=== PATIENT | female | born 1950 | race Caucasian/White ===

== ENCOUNTER 2017-08-04 09:12 | Inpatient (IN) | payer MEDICARE ==
[2017-08-04] MEDS ORDERED: Acetaminophen TAB* 325 MG PO PRN (12:09)
[2017-08-04] MEDS ORDERED: Senna TAB PO PRN (12:09)
[2017-08-04] MEDS ORDERED: Bisacodyl SUPP* 10 MG SUPP PR PRN (12:09)
[2017-08-04] MEDS ORDERED: Magnesium Hydroxide LIQ* 30 ML UDC PO PRN (12:13)
[2017-08-04] MEDS: oxyCODONE/Acetamin 5/325 MG* TAB PO PRN ×2 (12:25→20:07)
[2017-08-04] MEDS: traMADol TAB* 50 MG PO PRN (15:51)
--- NOTE | 2017-08-04 20:12 | HP ---
HISTORY AND PHYSICAL: DATE OF ADMISSION: 08/04/17 REASON FOR ADMISSION: Right distal femur fracture. HISTORY OF PRESENT ILLNESS: Savanah Ibrahim is a 67-year-old female. She was riding on her card reader. She had dumped some of the lawn clippings. When she got back on the card reader, it would not start. She put the mower into neutral and tried to push the card reader. Unfortunately, her leg got stuck in a rut in the ground and she fell. She had severe pain in her right knee area. Luckily, she had her cell phone with her. She tried calling her son-in-law and then her daughter, but was unable to reach them. Finally she called 911. She was brought to [facility]. X-ray of the right knee demonstrated a displaced fracture involving the right femoral condyle. The patient was evaluated. She was taken to the operating room on 08/01/17. She underwent an open reduction internal fixation of the right distal femur. Dr. Fulton did the surgery. She was put in a straight leg immobilizer after the surgery. She is nonweightbearing on the right leg. She was put on Lovenox for DVT prophylaxis. She was otherwise medically stable. She failed to have both physical therapy and occupational therapy needs. She is now being admitted for inpatient rehab so that she might return to independent living. PAST MEDICAL HISTORY: Significant for hypertension. CURRENT MEDICATIONS: Include; 1. Lovenox. 2. Percocet. 3. Ultram. 4. Diovan. 5. Norvasc. 6. Bowel medications. ALLERGIES: She has no known drug allergies. SOCIAL HISTORY: She is a nonsmoker, nondrinker, lives by herself in a 2-story house, but can stay on 1 level. She has 2 daughters in the area who are able to get her groceries. REVIEW OF SYSTEMS: No current shortness of breath or chest pain. Does have mild difficulty with constipation. PHYSICAL EXAMINATION VITAL SIGNS: The patient's temperature is 98.8, blood pressure is 126/45, pulse is 66, respirations 16. HEENT: Her extraocular movements are intact. Tongue is midline. NECK: Supple. LUNGS: Sound clear to auscultation bilaterally. HEART: Sounds are regular. S1 and S2 are audible. ABDOMEN: Soft and nontender. Bowel sounds are audible. EXTREMITIES: Her right knee has an immobilizer on. It has a dressing which is clean. NEUROLOGIC: She is awake, alert, and oriented. Muscle strength 5/5 except the right lower extremity which is 3/5 secondary to pain. The patient's functional exam, she transfers with min assist. ASSESSMENT: Right distal femur fracture. She is now status post ORIF of the same. She is nonweightbearing on the right leg. PLAN: Integrate her into a comprehensive and therapeutic rehab program. We will have the following goals: 1. Physical Therapy will see the patient. They are going to work on functional transfer training, ambulation training with a walker. 2. Occupational Therapy will see the patient, work on her activities of daily living including toileting and toilet transfers. 3. Lovenox for DVT prophylaxis. 4. Adequate analgesia. 5. Her bowels will be regulated. 6. environmental services assistant will be closely involved to make sure that any services and equipment the patient requires are in place prior to the discharge. 7. For her hypertension, we will resume her Norvasc and her Diovan. 8. Family training as appropriate. 9. Home with appropriate services. ESTIMATED LENGTH OF STAY: 10 days. [id number]/[facility] #: [id number] ELOY
[2017-08-04] MEDS: Enoxaparin(*) 30 MG/0.3 ML SYR SUBCUT SCH (22:15)
[2017-08-04] MEDS: Senna TAB PO SCH (22:15)
[2017-08-04] MEDS: Docusate CAP* 100 MG PO SCH (22:15)
[2017-08-05] MEDS: oxyCODONE/Acetamin 5/325 MG* TAB PO PRN ×4 (00:45→21:02)
[2017-08-05 06:08] LABS: ABS Basophils 0 10^3/ul (0-0.2); ABS Eosinophils 0.1 10^3/ul (0-0.6); ABS Lymphocytes 1.6 10^3/ul (1.0-4.8); ABS Monocytes 0.5 10^3/ul (0-0.8); ABS Neutrophils 3.5 10^3/ul (1.5-7.7); ABS Nucleated RBC 0 10^3/ul; Eosinophil % 1.3 % (0-6); Hematocrit 28 % (35-47); Hemoglobin 9.7 g/dl (12.0-16.0); Lymphocyte % 28.4 % (25-47); Mean Corpuscular HGB Conc 35 g/dl (31-36); Mean Corpuscular Hemoglobin 29 pg (27-31); Mean Corpuscular Volume 85 fL (80-97); Nucleated Red Blood Cells % 0; Platelet Count 153 10^3/ul (150-450); Red Cell Distribution Width 15 % (10.5-15); White Blood Count 5.7 10^3/ul (3.5-10.8)
[2017-08-05 06:22] LABS: EGFR Non-African American 138.1 (>60)
[2017-08-05] MEDS: amLODIPine TAB* 5 MG PO SCH (08:02)
[2017-08-05] MEDS: traMADol TAB* 50 MG PO PRN ×3 (08:02→20:11)
[2017-08-05] MEDS: Docusate CAP* 100 MG PO SCH ×2 (08:04→20:07)
[2017-08-05] MEDS: Enoxaparin(*) 30 MG/0.3 ML SYR SUBCUT SCH ×2 (08:44→21:25)
[2017-08-05] MEDS ORDERED: Valsartan TAB* 80 MG PO SCH (09:00)
--- NOTE | 2017-08-05 10:44 | PN ---
Progress Note Date of Service: 08/05/17 Note: MONA LIRIANO was visited. Nursing and therapy notes read and reviewed. Evaluations not completed. No chest pain, shortness of breath or abdominal pain. She is unhappy and frustrated with her situation and angry with herself. At home she did not use diovan, only norvasc. Diovan was too expensive. Also, took potassium and magnesium. When she is up moving she feels nauseated and light-headed. Current Medications: Active Medications Generic Name Dose Route Start Last Admin Trade Name Freq PRN Reason Stop Dose Admin Acetaminophen 650 mg 08/04/17 12:09 Tylenol Tab* PO Q6H PRN FEVER/PAIN Amlodipine Besylate 5 mg 08/05/17 09:00 08/05/17 08:02 Norvasc Tab* PO 5 mg DAILY DWIGHT Administration Bisacodyl 10 mg 08/04/17 12:09 Dulcolax Supp* CO DAILY PRN CONSTIPATION Docusate Sodium 100 mg 08/04/17 21:00 08/05/17 08:04 Colace Cap* PO 100 mg BID DWIGHT Administration Enoxaparin Sodium 30 mg 08/04/17 21:00 08/05/17 08:44 Lovenox(*) SUBCUT 30 mg Q12H DWIGHT Administration Magnesium Hydroxide 30 ml 08/04/17 12:13 Milk Of Magnesia Liq* PO Q6H PRN CONSTIPATION Oxycodone/Acetaminophen 1 tab 08/04/17 12:14 Percocet 5/325 Tab* PO Q4H PRN PAIN - MODERATE TO SEVERE Oxycodone/Acetaminophen 2 tab 08/04/17 12:15 08/05/17 05:59 Percocet 5/325 Tab* PO 2 tab Q4H PRN Administration PAIN - SEVERE Senna 2 tab 08/04/17 21:00 08/04/17 22:15 Senokot Tab* PO 2 tab BEDTIME DWIGHT Administration Tramadol HCl 50 mg 08/04/17 12:18 08/05/17 08:02 Ultram* PO 50 mg Q6H PRN Administration PAIN - MODERATE Valsartan 80 mg 08/05/17 09:00 08/05/17 08:02 Diovan Tab* PO 80 mg DAILY DWIGHT Administration Vital Signs: Vital Signs (72 hours) 08/04/17 08/04/17 08/04/17 11:37 12:25 12:26 Temperature 98.8 F Pulse Rate 66 Respiratory 16 16 16 Rate Blood Pressure 126/45 (mmHg) O2 Sat by Pulse 97 Oximetry 08/04/17 08/04/17 08/04/17 12:46 14:14 15:51 Temperature Pulse Rate Respiratory 16 20 16 Rate Blood Pressure (mmHg) O2 Sat by Pulse Oximetry 08/04/17 08/04/17 08/04/17 16:00 20:00 20:06 Temperature 98.2 F Pulse Rate 65 Respiratory 16 18 18 Rate Blood Pressure 101/39 (mmHg) O2 Sat by Pulse 95 95 Oximetry 08/04/17 08/04/17 08/05/17 20:07 23:30 00:34 Temperature 98.3 F Pulse Rate 71 Respiratory 18 18 16 Rate Blood Pressure 111/45 (mmHg) O2 Sat by Pulse 97 Oximetry 08/05/17 08/05/17 08/05/17 00:40 00:45 02:45 Temperature Pulse Rate Respiratory 18 16 Rate Blood Pressure (mmHg) O2 Sat by Pulse 97 Oximetry 08/05/17 08/05/17 08/05/17 05:59 06:01 08:00 Temperature 99.1 F Pulse Rate 61 Respiratory 20 16 Rate Blood Pressure 126/52 (mmHg) O2 Sat by Pulse 98 98 Oximetry 08/05/17 08/05/17 08:02 10:36 Temperature Pulse Rate Respiratory 18 18 Rate Blood Pressure (mmHg) O2 Sat by Pulse Oximetry Lab Results: Laboratory Results - last 24 hr 08/05/17 08/05/17 05:52 05:52 WBC 5.7 RBC 3.30 L Hgb 9.7 L Hct 28 L MCV 85 MCH 29 MCHC 35 RDW 15 Plt Count 153 MPV 8.0 Neut % (Auto) 61.0 Lymph % (Auto) 28.4 [place] % (Auto) 8.5 H Eos % (Auto) 1.3 Baso % (Auto) 0.8 Absolute Neuts (auto) 3.5 Absolute Lymphs (auto) 1.6 Absolute Monos (auto) 0.5 Absolute Eos (auto) 0.1 Absolute Basos (auto) 0 Absolute Nucleated RBC 0 Nucleated RBC % 0 Sodium 138 L Potassium 3.4 L Chloride 104 Carbon Dioxide 28 Anion Gap 6 BUN 15 Creatinine 0.45 L Est GFR ( Amer) 177.7 Est GFR (Non-Af Amer) 138.1 BUN/Creatinine Ratio 33.3 H Glucose 91 Calcium 8.5 L Exam: GEN: no acute distress. alert and appropriate. LUNGS: clear to auscultation bilaterally CV: regular rate and rhythm ABD: + bowel sounds, soft, non-tender and non-distended. EXT: No edema. Right knee immobilizer on. Dressing is c/d/i. NEURO: LE motor 5/5 bilaterally at ankles and toes with normal sensation. Assessment/Plan: 67yo with right distal femur fracture s/p ORIF #Right distal femur fracture: f/u with Dr. Fulton. NWB RLE and knee immobilizer on AAT. #DVT ppx - On lovenox for total of 11 days. She will no inject herself, but her daughters will work it out. Training of family members closer to d/c. #Hypertension: She was no taking valsartan at [facility] and BP looked ok. D/c valsartan and monitor. Continue norvasc. If hypertensive consider increase norvasc. #Nausea and light headed when up: Check orthostatic vital signs. Zofran prn. D/ c valsartan. #Hypokalemia: Give KCl and MgOx today and check Mg. Recheck K and Mg on Monday. Takes some potassium and Mg at home normally. #Acute post-op anemia: Last H/H before today was 10.9/30.9 at [facility]. Was taking ferrous sulfate at [facility]. Restart iron. Recheck cbc Monday. She says she has some chronic anemia as well. #continue PT/OT evaluations #Advanced directives: full code #Estimated LOS: IPOC on Monday. 08/05/17 10:46
[2017-08-05] MEDS ORDERED: Ondansetron ODT TAB* 4 MG SL PRN (10:53)
[2017-08-05] MEDS: Ferrous Sulfate TAB* 325 MG PO SCH ×2 (12:26→20:07)
[2017-08-05] MEDS: Magnesium Oxide TAB* 400 MG PO SCH (12:26)
[2017-08-05] MEDS: Potassium Chlor TAB* 20 MEQ TAB.ER PO SCH ×2 (12:26→21:25)
[2017-08-05] MEDS: Senna TAB PO SCH (20:07)
[2017-08-06] MEDS: traMADol TAB* 50 MG PO PRN ×3 (02:08→16:12)
[2017-08-06] MEDS: oxyCODONE/Acetamin 5/325 MG* TAB PO PRN (05:02)
[2017-08-06 06:22] LABS: ABS Basophils 0.1 10^3/ul (0-0.2); ABS Eosinophils 0.1 10^3/ul (0-0.6); ABS Lymphocytes 1.3 10^3/ul (1.0-4.8); ABS Monocytes 0.5 10^3/ul (0-0.8); ABS Neutrophils 4.3 10^3/ul (1.5-7.7); ABS Nucleated RBC 0 10^3/ul; Hematocrit 32 % (35-47); Hemoglobin 10.9 g/dl (12.0-16.0); Lymphocyte % 20.5 % (25-47); Mean Corpuscular HGB Conc 35 g/dl (31-36); Mean Corpuscular Hemoglobin 29 pg (27-31); Mean Corpuscular Volume 85 fL (80-97); Mean Platelet Volume 7.9 um3 (7.4-10.4); Nucleated Red Blood Cells % 0.1; Platelet Count 220 10^3/ul (150-450); Red Blood Count 3.73 10^6/ul (4.0-5.4); Red Cell Distribution Width 15 % (10.5-15); White Blood Count 6.1 10^3/ul (3.5-10.8)
[2017-08-06 06:37] LABS: EGFR Non-African American 149.6 (>60)
[2017-08-06] MEDS ORDERED: Docusate CAP* 100 MG PO PRN (07:42)
[2017-08-06] MEDS ORDERED: Senna TAB PO PRN (07:42)
[2017-08-06] MEDS: Potassium Chlor TAB* 20 MEQ TAB.ER PO SCH ×2 (08:17→21:04)
[2017-08-06] MEDS: Magnesium Oxide TAB* 400 MG PO SCH (08:17)
[2017-08-06] MEDS: amLODIPine TAB* 5 MG PO SCH (08:17)
--- NOTE | 2017-08-06 08:21 | PN ---
Progress Note Date of Service: 08/06/17 Note: MONA LIRIANO was visited. Nursing and therapy notes read and reviewed. She did not get in her full 3h of therapy yesterday and refused afternoon PT. She says percocet not working as well as tramadol had in past, but she took percocet in the morning and tramadol in the afternoon, which contradicts her function, which was pointed out to her. She does not want to be on iron. Had 3 bowel movements yesterday and wants bowel meds to change to prn. No chest pain, shortness of breath or abdominal pain. Current Medications: Active Medications Generic Name Dose Route Start Last Admin Trade Name Freq PRN Reason Stop Dose Admin Acetaminophen 650 mg 08/04/17 12:09 Tylenol Tab* PO Q6H PRN FEVER/PAIN Hydrocodone Bitart/Acetaminophen 1 tab 08/06/17 07:40 [place] 5-325 Tab* PO Q4H PRN PAIN Hydrocodone Bitart/Acetaminophen 2 tab 08/06/17 07:41 [place] 5-325 Tab* PO Q4H PRN PAIN Amlodipine Besylate 5 mg 08/05/17 09:00 08/05/17 08:02 Norvasc Tab* PO 5 mg DAILY DWIGHT Administration Bisacodyl 10 mg 08/04/17 12:09 Dulcolax Supp* [place] DAILY PRN CONSTIPATION Docusate Sodium 100 mg 08/06/17 07:42 Colace Cap* PO BID PRN CONSTIPATION Enoxaparin Sodium 30 mg 08/04/17 21:00 08/05/17 21:25 Lovenox(*) SUBCUT 30 mg Q12H DWIGHT Administration Magnesium Hydroxide 30 ml 08/04/17 12:13 Milk Of Magnesia Liq* PO Q6H PRN CONSTIPATION Magnesium Oxide 400 mg 08/05/17 11:00 08/05/17 12:26 Magox 400 Tab* PO 400 mg DAILY DWIGTH Administration Ondansetron HCl 4 mg 08/05/17 10:53 Zofran Odt Tab* SL Q6H PRN NAUSEA/VOMITING Potassium Chloride 20 meq 08/05/17 11:00 08/05/17 21:25 Klor Con Er Tab* PO 20 meq BID DWIGHT Administration Senna 2 tab 08/06/17 07:42 Senokot Tab* PO BEDTIME PRN CONSTIPATION Tramadol HCl 50 mg 08/04/17 12:18 08/06/17 02:08 Ultram* PO 50 mg Q6H PRN Administration PAIN - MODERATE Vital Signs: Vital Signs Temp Pulse Resp BP Pulse Ox 98.3 F 69 18 140/58 98 08/06/17 07:46 08/06/17 04:51 08/06/17 06:45 08/06/17 04:51 08/06/17 04:51 Lab Results: Laboratory Results - last 24 hr 08/05/17 08/06/17 08/06/17 05:52 05:37 05:37 WBC 6.1 RBC 3.73 L Hgb 10.9 L Hct 32 L MCV 85 MCH 29 MCHC 35 RDW 15 Plt Count 220 MPV 7.9 Neut % (Auto) 69.7 Lymph % (Auto) 20.5 L [place] % (Auto) 7.9 H Eos % (Auto) 1.0 Baso % (Auto) 0.9 Absolute Neuts (auto) 4.3 Absolute Lymphs (auto) 1.3 Absolute Monos (auto) 0.5 Absolute Eos (auto) 0.1 Absolute Basos (auto) 0.1 Absolute Nucleated RBC 0 Nucleated RBC % 0.1 Sodium 138 L 139 Potassium 3.4 L 3.5 Chloride 104 104 Carbon Dioxide 28 27 Anion Gap 6 8 BUN 15 13 Creatinine 0.45 L 0.42 L Est GFR ( Amer) 177.7 192.4 Est GFR (Non-Af Amer) 138.1 149.6 BUN/Creatinine Ratio 33.3 H 31.0 H Glucose 91 104 H Calcium 8.5 L 8.8 Magnesium 2.0 1.9 Exam: GEN: no acute distress. alert and appropriate. LUNGS: clear to auscultation bilaterally CV: regular rate and rhythm ABD: + bowel sounds, soft, non-tender and non-distended. EXT: No edema. Right knee immobilizer on. Dressing is c/d/i. NEURO: LE motor 5/5 bilaterally at ankles and toes with normal sensation. Assessment/Plan: 67yo with right distal femur fracture s/p ORIF #Right distal femur fracture: f/u with Dr. Fulton. NWB RLE and knee immobilizer on AAT. She says Dr. Fulton wants her to do some knee flexion and at [facility] she had the brace off for showers. Will have to f/u with his office on Monday. #DVT ppx - On lovenox for total of 11 days. She will not inject herself, but her daughters will work it out. Training of family members closer to d/c. #Hypertension: She was not taking valsartan at [facility] and BP looked ok. D/c'd valsartan and monitor VS. Continue norvasc. If hypertensive consider increase norvasc. #Nausea and light headed when up: Orthostatic vital signs were good yesterday. Zofran prn. Off valsartan. #Hypokalemia: On KCl and MgOx. She takes some of both normally at home but does not known doses. Both K and Mg ok today. f/u K on routine labs. #Acute post-op anemia: Better today. D/c FeSO4 as patient does not like it. #Pain: Changed from percocet to [place]. Continue tramadol prn. #continue PT/OT: I d/w need for 3hrs of therapy and she is not ready to go home. 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 Per d/c orders for 1st week she is just to ambulate bathroom distances. She will be at end of first week on Monday. #Advanced directives: full code #Estimated LOS: IPOC on Monday. 08/06/17 08:15
[2017-08-06] MEDS: Enoxaparin(*) 30 MG/0.3 ML SYR SUBCUT SCH ×2 (08:29→21:02)
[2017-08-06] MEDS: HYDROcodone/ACETAMIN 5-325 MG* 1 TAB PO PRN ×4 (09:45→22:00)
[2017-08-07] MEDS: traMADol TAB* 50 MG PO PRN ×3 (00:41→15:02)
[2017-08-07] MEDS: HYDROcodone/ACETAMIN 5-325 MG* 1 TAB PO PRN ×5 (02:08→21:59)
[2017-08-07 06:50] LABS: ABS Basophils 0 10^3/ul (0-0.2); ABS Eosinophils 0.1 10^3/ul (0-0.6); ABS Lymphocytes 1.3 10^3/ul (1.0-4.8); ABS Monocytes 0.5 10^3/ul (0-0.8); ABS Nucleated RBC 0 10^3/ul; Eosinophil % 1.4 % (0-6); Hematocrit 29 % (35-47); Hemoglobin 10.1 g/dl (12.0-16.0); Lymphocyte % 25.8 % (25-47); Mean Corpuscular HGB Conc 35 g/dl (31-36); Mean Corpuscular Hemoglobin 30 pg (27-31); Mean Corpuscular Volume 85 fL (80-97); Mean Platelet Volume 7.5 um3 (7.4-10.4); Nucleated Red Blood Cells % 0.3; Platelet Count 201 10^3/ul (150-450); Red Blood Count 3.41 10^6/ul (4.0-5.4); Red Cell Distribution Width 15 % (10.5-15); White Blood Count 4.9 10^3/ul (3.5-10.8)
[2017-08-07 07:05] LABS: EGFR Non-African American 149.6 (>60)
[2017-08-07] MEDS: Enoxaparin(*) 30 MG/0.3 ML SYR SUBCUT SCH ×2 (09:01→21:26)
[2017-08-07] MEDS: Magnesium Oxide TAB* 400 MG PO SCH (09:02)
[2017-08-07] MEDS: amLODIPine TAB* 5 MG PO SCH (09:02)
[2017-08-07] MEDS: Potassium Chlor TAB* 20 MEQ TAB.ER PO SCH (09:02)
--- NOTE | 2017-08-07 13:00 | PMRUTEAM ---
PMRU: Team Meeting Current Status: Nursing: Current Status Skin Deviations [Right Leg] Incision Skin Deviation Description [ brace in place Right Leg] Physical Therapy: Current Status Bed Mobility Assistance Supervision Transfer Moblility Assistance Supervision Transfer/Bed Mobility Rolling Walker Recommended Devices Ambulation Assistance Contact guard Ambulation Assistive Devices Rolling Walker Wheelchair Distance (ft) 150 Occupational Therapy: Current Status Upper Body Dressing Supervision Lower Body Dressing Supervision Bathing Supervision Toileting Supervision Toilet Transfer Supervision Shower Transfer Supervision Eating Independent Rec Therapy: Current Status Summary of Assessment and Pt. was open to conversation. Pt. expressed Clinical Impression frustration about her current physical health and pain. Pt. states she is a very active person and that she's upset she won't be able to engage in the things she wants to do for some time now. Pt. was open to continued leisure visits. Treatment Goals Pt. will engage in leisure activities while on the unit. Treatment Plan Provide RT services and encourage involvement. Social Work: Current Status Discharge Plan return home with home care svs and family support Potential for Family Training pt's daughters are involved and supportive Anticipated Discharge Home Destination Discharge With home care svs and family support Goals: Physical Therapy: Initial Goals Bed Mobility Assistance Independent Transfer Mobility Assistance Independent Transfer/Bed Mobility Rolling Walker Recommended Devices Ambulation Independent Ambulation Recommended Devices Rolling Walker Ambulation Distance 150 Wheelchair Propulsion Ability Independent Wheelchair Distance (ft) 150 Stairs Assistance Independent Stair Recommended Devices Two Rails Number of Stairs 2 Physical Therapy: Updated Goals Transfer/Bed Mobility Rolling Walker Recommended Devices Occupational Therapy: Initial Goals Goals to be Completed in (Days 5 days ) Upper Body Bathing Routine Modified Independent with Lower Body Bathing Routine Modified Independent with Upper Body Dressing Routine Independent Lower Body Dressing Routine Modified Independent with Toilet Hygeine and Clothing Modified Independent with Management Routine Toilet Transfer Routine Modified Independent with Tub Transfer Routine Modified Independent with Functional Transfers for ADL Modified Independent with Grooming Routine Independent Feeding Routine Independent Social Work: Goals Discharge Plan return home with home care svs and family support Potential for Family Training pt's daughters are involved and supportive Anticipated Discharge Home Destination Discharge With home care svs and family support Care Plan: Care Plan ADL's - Improve/Maintain Start: 08/04/17 15:04 Freq: DAILY Status: Active Target: Protocol: Activity Type Activity Date Activity User E-Sign Co-Sign Detail Recorded Client Recorded Date Recorded By Document 08/04/17 15:04 [id number] [id number] 08/04/17 15:04 [id number] 08/04/17 15:04 PMRU Outcome: ADL's/ADL Transfers Orders/Interventions Occupational Therapy Evaluation & Treatment Device Yes Patient to receive OT 5x/wk for 60-120 Therex min/day Self Care Management Group Therapy Neuromuscular ReEducation UE/LE ADL's with Assist Yes ADL Transfers with Assist Yes Toileting: Transfers,Clothing Management Yes ,Hygeine w/Assist Light Kitchen/Laundry w/Assist Yes Coping/Psych-Improve/Maintain Start: 08/05/17 11:39 Freq: DAILY Status: Active Target: Protocol: Activity Type Activity Date Activity User E-Sign Co-Sign Detail Recorded Client Recorded Date Recorded By Document 08/07/17 04:24 [id number] 08/07/17 04:25 [id number] 08/07/17 04:24 PMRU Outcome: Coping/Psychosocial Coping Outcome/Goals Verbalization of Acceptance of Rehab Admit Utilization of Appropriate Problem Solving Techniques Willingness to Participate in Treatment Plan and Basic Needs Psychosocial Outcome/Goals Maintain/ Improve Emotional Health Cooperate/ Participate in Plan Progression Toward Outcome/Goals - Progressing Coping Progression Toward Outcome/Goals - Progressing Psychosocial Discharge Planning - Improve/Maintain Start: 08/05/17 11:39 Freq: DAILY Status: Active Target: Protocol: Activity Type Activity Date Activity User E-Sign Co-Sign Detail Recorded Client Recorded Date Recorded By Document 08/07/17 04:24 [id number] 08/07/17 04:25 [id number] 08/07/17 04:24 PMRU Outcome: Discharge Planning Update Patient Family Yes Outcome/Goals Demonstrates Understanding of Discharge Plan Homecare Referral - See Comment Progression Toward Outcome/Goals Progressing Education-Improve/Maintain Start: 08/05/17 11:39 Freq: DAILY Status: Active Target: Protocol: Activity Type Activity Date Activity User E-Sign Co-Sign Detail Recorded Client Recorded Date Recorded By Document 08/07/17 04:24 [id number] [id number] 08/07/17 04:25 [id number] 08/07/17 04:24 PMRU Outcome: Education Outcome/Goals Demonstrate/ Verbalize Understanding of Written Discharge Instructions Demonstrates Skills Encourage Questions Progression Toward Outcome/Goals Progressing Outcome/Goals Met Comment continuous pain medication and pain education Gastrointestinal-Improve/Maintain Start: 08/05/17 01:20 Freq: DAILY Status: Active Target: Protocol: Activity Type Activity Date Activity User E-Sign Co-Sign Detail Recorded Client Recorded Date Recorded By Document 08/05/17 23:01 [id number] 08/05/17 23:04 [id number] 08/05/17 23:01 Outcome: Gastrointestinal Outcome/Goals Maintain/ Achieve Bowel Regularity in Accordance with Pt's Baseline Remain Free of Emesis Infection-Improve/Maintain Start: 08/05/17 01:20 Freq: DAILY Status: Active Target: Protocol: Activity Type Activity Date Activity User E-Sign Co-Sign Detail Recorded Client Recorded Date Recorded By Document 08/05/17 23:01 [id number] 08/05/17 23:04 [id number] 08/05/17 23:01 Outcome: Infection Outcome/Goals Remain Free of Infection Achieve Optimal Health Status Related to Diagnosis Pain/Comfort- Improve/Maintain Start: 08/05/17 11:39 Freq: DAILY Status: Active Target: Protocol: Activity Type Activity Date Activity User E-Sign Co-Sign Detail Recorded Client Recorded Date Recorded By Document 08/07/17 04:24 [id number] 08/07/17 04:25 [id number] 08/07/17 04:24 PMRU Outcome: Pain/Comfort Outcome/Goals Demonstrates Knowledge and Use of Available Comfort Measures Achieves Acceptable Comfort/Pain Level as Determined by Patient/Condit Maintain Comfort Level Allowing Patient to Fully Participate in Rehab Progression Toward Outcome/Goals Progressing Outcome/Goals Met Comment pain medication given Safety- Improve/Maintain Start: 08/05/17 11:39 Freq: DAILY Status: Active Target: Protocol: Activity Type Activity Date Activity User E-Sign Co-Sign Detail Recorded Client Recorded Date Recorded By Document 08/07/17 04:24 [id number] 08/07/17 04:25 [id number] 08/07/17 04:24 PMRU Outcome: Safety Outcome/Goals Remain Free of Injury or Harm Cooperates with Safety Measures for Least Restrictive Environment Prevent Falls/ Injury Progression Toward Outcome/Goals Progressing Skin- Improve/Maintain Start: 08/05/17 11:39 Freq: DAILY Status: Active Target: Protocol: Activity Type Activity Date Activity User E-Sign Co-Sign Detail Recorded Client Recorded Date Recorded By Document 08/07/17 04:24 [id number] 08/07/17 04:25 [id number] 08/07/17 04:24 PMRU Outcome: Skin Skin Risk Level Medium Skin Orders Dressing Change Outcome/Goals Maintain/ Improve Skin Intergrity Surgical Incisions Healing Progression Toward Outcome/Goals Progressing Medicine Note: Length of Stay: 4 days Anticipated Discharge Destination: Home Tentative Discharge Date: 08/10/17 Discharged to: Home
--- NOTE | 2017-08-07 17:21 | PN ---
Progress Note Date of Service: 08/07/17 Note: MONA LIRIANO was visited. Therapy notes read and reviewed. Tiffanie was discussed in interdisciplinary plan of care rounds. She has done fairly well. Current Medications: Active Medications Generic Name Dose Route Start Last Admin Trade Name Freq PRN Reason Stop Dose Admin Acetaminophen 650 mg 08/04/17 12:09 Tylenol Tab* PO Q6H PRN FEVER/PAIN Hydrocodone Bitart/Acetaminophen 1 tab 08/06/17 07:40 08/06/17 18:02 [place] 5-325 Tab* PO 1 tab Q4H PRN Administration PAIN Hydrocodone Bitart/Acetaminophen 2 tab 08/06/17 07:41 08/07/17 11:03 [place] 5-325 Tab* PO 2 tab Q4H PRN Administration PAIN Amlodipine Besylate 5 mg 08/05/17 09:00 08/07/17 09:02 Norvasc Tab* PO 5 mg DAILY DWIGHT Administration Bisacodyl 10 mg 08/04/17 12:09 Dulcolax Supp* AR DAILY PRN CONSTIPATION Docusate Sodium 100 mg 08/06/17 07:42 Colace Cap* PO BID PRN CONSTIPATION Enoxaparin Sodium 30 mg 08/04/17 21:00 08/07/17 09:01 Lovenox(*) SUBCUT 30 mg Q12H DWIGHT Administration Magnesium Hydroxide 30 ml 08/04/17 12:13 Milk Of Magnesia Liq* PO Q6H PRN CONSTIPATION Ondansetron HCl 4 mg 08/05/17 10:53 Zofran Odt Tab* SL Q6H PRN NAUSEA/VOMITING Senna 2 tab 08/06/17 07:42 Senokot Tab* PO BEDTIME PRN CONSTIPATION Tramadol HCl 50 mg 08/04/17 12:18 08/07/17 15:02 Ultram* PO 50 mg Q6H PRN Administration PAIN - MODERATE Vital Signs: Vital Signs Temp Pulse Resp BP Pulse Ox 99.3 F 70 16 119/59 96 08/07/17 06:06 08/07/17 06:06 08/07/17 15:07 08/07/17 06:06 08/07/17 08:00 Lab Results: Laboratory Results - last 24 hr 08/07/17 08/07/17 06:41 06:41 WBC 4.9 RBC 3.41 L Hgb 10.1 L Hct 29 L MCV 85 MCH 30 MCHC 35 RDW 15 Plt Count 201 MPV 7.5 Neut % (Auto) 61.3 Lymph % (Auto) 25.8 [place] % (Auto) 10.6 H Eos % (Auto) 1.4 Baso % (Auto) 0.9 Absolute Neuts (auto) 3.0 Absolute Lymphs (auto) 1.3 Absolute Monos (auto) 0.5 Absolute Eos (auto) 0.1 Absolute Basos (auto) 0 Absolute Nucleated RBC 0 Nucleated RBC % 0.3 Sodium 140 Potassium 4.1 Chloride 108 Carbon Dioxide 28 Anion Gap 4 BUN 15 Creatinine 0.42 L Est GFR ( Amer) 192.4 Est GFR (Non-Af Amer) 149.6 BUN/Creatinine Ratio 35.7 H Glucose 103 H Calcium 8.8 Total Bilirubin 1.40 H AST 94 H ALT 104 H Alkaline Phosphatase 289 H Total Protein 5.7 L Albumin 3.2 Globulin 2.5 Albumin/Globulin Ratio 1.3 Exam: LUNGS: clear to auscultation bilaterally CV: regular rate and rhythm ABD: + bowel sounds, soft, non-tender and non-distended. EXT: No edema. Right knee immobilizer on. Dressing is c/d/i. NEURO: Alert and oriented. Sensation intact. Can dorsiflex without problems Assessment/Plan: 1. Right distal femur fracture: f/u with Dr. Fulton. NWB RLE and knee immobilizer on AAT. PT/OT. 2. DVT ppx - On lovenox for total of 14 days. Will do Lovenox teaching. 3. Hypertension: She was not taking valsartan at [facility] and did not take at home. D/c'd valsartan. Continue norvasc. 4. Orthostasis/Dizziness: Better off Valsartan. 5. Hypokalemia: On KCl and MgOx. K+=4.1 today. Will hold supplements and follow 6. Acute post-op anemia: Stable. 7. Analgesia: Changed from percocet to [place]. Continue tramadol prn. 8. Advanced directives: full code 08/07/17 17:26
[2017-08-08] MEDS: HYDROcodone/ACETAMIN 5-325 MG* 1 TAB PO PRN ×5 (02:22→20:27)
[2017-08-08] MEDS: Enoxaparin(*) 30 MG/0.3 ML SYR SUBCUT SCH ×2 (09:43→20:30)
[2017-08-08] MEDS: amLODIPine TAB* 5 MG PO SCH (09:43)
--- NOTE | 2017-08-08 12:33 | PMRUTEAM ---
PMRU: Team Meeting Current Status: Nursing: Current Status Skin Deviations [Right Leg] Incision Skin Deviation Description [ Drsg and immobilizer in place Right Leg] Physical Therapy: Current Status Bed Mobility Assistance Supervision Transfer Moblility Assistance Contact Guard Assist Transfer/Bed Mobility Rolling Walker Recommended Devices Ambulation Assistance Contact Guard Assist Ambulation Assistive Devices Rolling Walker Number of Feet Patient 75 Ambulated Manual Wheelchair Control/ Bilateral UE's Technique Wheelchair Propulsion Ability Standby Assistance Wheelchair Distance (ft) 150 Objective Comments pt observed hopping for curb negotiation to enter / exit home with RW, also observed bumping strategy posteriorly with manual w/c; Occupational Therapy: Current Status Upper Body Dressing Supervision Lower Body Dressing Supervision Bathing Supervision Toileting Supervision Toilet Transfer Supervision Shower Transfer Supervision Eating Independent Rec Therapy: Current Status Summary of Assessment and RT assessment complete and pt. is aware of RT Clinical Impression services. Pt. has been better spirits and is pleasant and cooperative during leisure visits. Pt. has leisure material in her room and visits with her daughter in the afternoons. Treatment Goals Pt. will engage in leisure activities while on the unit. Treatment Plan Provide RT services and encourage involvement. Social Work: Current Status Discharge Plan return home with home care svs and family support Potential for Family Training TBD - pt lives alone and family live over 1/2 hour away Anticipated Discharge Home Destination Discharge With home care svs and family support Nutrition: Current Status Monitoring full assessment planned on 08/11 per NDS protocol. Initial/tentative goals as outlined below. Goals: Physical Therapy: Initial Goals Bed Mobility Assistance Independent Transfer Mobility Assistance Independent Transfer/Bed Mobility Rolling Walker Recommended Devices Ambulation Independent Ambulation Recommended Devices Rolling Walker Ambulation Distance 150 Wheelchair Propulsion Ability Independent Wheelchair Distance (ft) 150 Stairs Assistance Independent Stair Recommended Devices Two Rails Number of Stairs 2 Physical Therapy: Updated Goals Transfer/Bed Mobility Rolling Walker Recommended Devices Occupational Therapy: Initial Goals Goals to be Completed in (Days 5 days ) Upper Body Bathing Routine Modified Independent with Lower Body Bathing Routine Modified Independent with Upper Body Dressing Routine Independent Lower Body Dressing Routine Modified Independent with Toilet Hygeine and Clothing Modified Independent with Management Routine Toilet Transfer Routine Modified Independent with Tub Transfer Routine Modified Independent with Functional Transfers for ADL Modified Independent with Grooming Routine Independent Feeding Routine Independent Nutrition: Goals Intervention Goals 1. adequate po intake to support lean body mass and hydration without add'l wt gain 2. maintain regular bowel pattern without constipation or diarrhea 3. skin will remain intact without s/sx breakdown Social Work: Goals Discharge Plan return home with home care svs and family support Potential for Family Training TBD - pt lives alone and family live over 1/2 hour away Anticipated Discharge Home Destination Discharge With home care svs and family support Care Plan: Care Plan ADL's - Improve/Maintain Start: 08/04/17 15:04 Freq: DAILY@1200 Status: Active Target: Protocol: Activity Type Activity Date Activity User E-Sign Co-Sign Detail Recorded Client Recorded Date Recorded By Document 08/08/17 10:13 [id number] [id number] 08/08/17 10:13 [id number] 08/08/17 10:13 PMRU Outcome: ADL's/ADL Transfers Orders/Interventions Occupational Therapy Evaluation & Treatment Device Yes Patient to receive OT 5x/wk for 60-120 Therex min/day Self Care Management Group Therapy Neuromuscular ReEducation UE/LE ADL's with Assist Yes ADL Transfers with Assist Yes Toileting: Transfers,Clothing Management Yes ,Hygeine w/Assist Light Kitchen/Laundry w/Assist Yes Progression Toward Outcome/Goals Progressing Outcome/Goals Met Pt. continues to progress towards OT goals demonstrating increased strength and overall endurance. Coping/Psych-Improve/Maintain Start: 08/05/17 11:39 Freq: DAILY@1200 Status: Active Target: Protocol: Activity Type Activity Date Activity User E-Sign Co-Sign Detail Recorded Client Recorded Date Recorded By Document 08/08/17 01:18 [id number] 08/08/17 01:19 [id number] 08/08/17 01:18 PMRU Outcome: Coping/Psychosocial Coping Outcome/Goals Verbalization of Acceptance of Rehab Admit Utilization of Appropriate Problem Solving Techniques Willingness to Participate in Treatment Plan and Basic Needs Psychosocial Outcome/Goals Maintain/ Improve Emotional Health Cooperate/ Participate in Plan Progression Toward Outcome/Goals - Progressing Coping Progression Toward Outcome/Goals - Progressing Psychosocial Discharge Planning - Improve/Maintain Start: 08/05/17 11:39 Freq: DAILY@1200 Status: Active Target: Protocol: Activity Type Activity Date Activity User E-Sign Co-Sign Detail Recorded Client Recorded Date Recorded By Document 08/07/17 04:24 [id number] [id number] 08/07/17 04:25 [id number] 08/07/17 04:24 PMRU Outcome: Discharge Planning Update Patient Family Yes Outcome/Goals Demonstrates Understanding of Discharge Plan Homecare Referral - See Comment Progression Toward Outcome/Goals Progressing Education-Improve/Maintain Start: 08/05/17 11:39 Freq: DAILY@1200 Status: Active Target: Protocol: Activity Type Activity Date Activity User E-Sign Co-Sign Detail Recorded Client Recorded Date Recorded By Document 08/08/17 01:18 [id number] 08/08/17 01:19 [id number] 08/08/17 01:18 PMRU Outcome: Education Outcome/Goals Encourage Questions Progression Toward Outcome/Goals Progressing Gastrointestinal-Improve/Maintain Start: 08/05/17 01:20 Freq: DAILY@1200 Status: Active Target: Protocol: Activity Type Activity Date Activity User E-Sign Co-Sign Detail Recorded Client Recorded Date Recorded By Document 08/08/17 01:18 [id number] 08/08/17 01:19 [id number] 08/08/17 01:18 Outcome: Gastrointestinal Outcome/Goals Maintain/ Achieve Bowel Regularity in Accordance with Pt's Baseline Remain Free of Emesis Progression Toward Outcome/Goals Progressing Infection-Improve/Maintain Start: 08/05/17 01:20 Freq: DAILY@1200 Status: Active Target: Protocol: Activity Type Activity Date Activity User E-Sign Co-Sign Detail Recorded Client Recorded Date Recorded By Document 08/08/17 01:18 [id number] 08/08/17 01:19 [id number] 08/08/17 01:18 Outcome: Infection Outcome/Goals Remain Free of Infection Understand Infection Prevention Strategies Achieve Optimal Health Status Related to Diagnosis Progression Toward Outcome/Goals Progressing Pain/Comfort- Improve/Maintain Start: 08/05/17 11:39 Freq: DAILY@1200 Status: Active Target: Protocol: Activity Type Activity Date Activity User E-Sign Co-Sign Detail Recorded Client Recorded Date Recorded By Document 08/07/17 20:00 [id number] 08/07/17 21:56 [id number] 08/07/17 20:00 PMRU Outcome: Pain/Comfort Outcome/Goals Demonstrates Knowledge and Use of Available Comfort Measures Achieves Acceptable Comfort/Pain Level as Determined by Patient/Condit Progression Toward Outcome/Goals Progressing Safety- Improve/Maintain Start: 08/05/17 11:39 Freq: DAILY@1200 Status: Active Target: Protocol: Activity Type Activity Date Activity User E-Sign Co-Sign Detail Recorded Client Recorded Date Recorded By Document 08/08/17 01:18 [id number] 08/08/17 01:19 [id number] 08/08/17 01:18 PMRU Outcome: Safety Outcome/Goals Remain Free of Injury or Harm Cooperates with Safety Measures for Least Restrictive Environment Prevent Falls/ Injury Progression Toward Outcome/Goals Progressing Skin- Improve/Maintain Start: 08/05/17 11:39 Freq: DAILY@1200 Status: Active Target: Protocol: Activity Type Activity Date Activity User E-Sign Co-Sign Detail Recorded Client Recorded Date Recorded By Document 08/08/17 01:18 [id number] 08/08/17 01:19 [id number] 08/08/17 01:18 PMRU Outcome: Skin Skin Risk Level Medium Skin Orders Dressing Change Outcome/Goals Maintain/ Improve Wound Status Surgical Incisions Healing Progression Toward Outcome/Goals Progressing Medicine Note: Length of Stay: 2 days Anticipated Discharge Destination: Home Tentative Discharge Date: 08/10/17 Discharged to: Home
[2017-08-08] MEDS: traMADol TAB* 50 MG PO PRN ×2 (15:45→23:41)
--- NOTE | 2017-08-08 17:30 | PN ---
Progress Note Date of Service: 08/08/17 Note: MONA LIRIANO was visited. Therapy notes read and reviewed. She was discussed in interdisciplinary team rounds. She will go home with a 16 W wheelchair which should suit her needs. Current Medications: Active Medications Generic Name Dose Route Start Last Admin Trade Name Freq PRN Reason Stop Dose Admin Acetaminophen 650 mg 08/04/17 12:09 Tylenol Tab* PO Q6H PRN FEVER/PAIN Hydrocodone Bitart/Acetaminophen 1 tab 08/06/17 07:40 08/06/17 18:[address] 5-325 Tab* PO 1 tab Q4H PRN Administration PAIN Hydrocodone Bitart/Acetaminophen 2 tab 08/06/17 07:41 08/08/17 14:[address] 5-325 Tab* PO 2 tab Q4H PRN Administration PAIN Amlodipine Besylate 5 mg 08/05/17 09:00 08/08/17 09:43 Norvasc Tab* PO 5 mg DAILY DWIGHT Administration Bisacodyl 10 mg 08/04/17 12:09 Dulcolax Supp* NE DAILY PRN CONSTIPATION Docusate Sodium 100 mg 08/06/17 07:42 Colace Cap* PO BID PRN CONSTIPATION Enoxaparin Sodium 30 mg 08/04/17 21:00 08/08/17 09:43 Lovenox(*) SUBCUT 30 mg Q12H DWIGHT Administration Magnesium Hydroxide 30 ml 08/04/17 12:13 Milk Of Magnesia Liq* PO Q6H PRN CONSTIPATION Ondansetron HCl 4 mg 08/05/17 10:53 Zofran Odt Tab* SL Q6H PRN NAUSEA/VOMITING Senna 2 tab 08/06/17 07:42 Senokot Tab* PO BEDTIME PRN CONSTIPATION Tramadol HCl 50 mg 08/04/17 12:18 08/08/17 15:45 Ultram* PO 50 mg Q6H PRN Administration PAIN - MODERATE Vital Signs: Vital Signs Temp Pulse Resp BP Pulse Ox 98.6 F 77 16 138/46 97 08/08/17 16:04 08/08/17 16:04 08/08/17 16:04 08/08/17 16:04 08/08/17 16:04 Exam: LUNGS: clear to auscultation bilaterally CV: regular rate and rhythm ABD: + bowel sounds, soft, non-tender and non-distended. EXT: No edema. Right knee immobilizer on. Dressing is c/d/i. NEURO: Alert and oriented. Sensation intact. Can dorsiflex without problems Assessment/Plan: 1. Right distal femur fracture: f/u with Dr. Fulton. NWB RLE and knee immobilizer on AAT. PT/OT. 2. DVT ppx - On lovenox for total of 14 days. Will do Lovenox teaching. 3. Hypertension: She was not taking valsartan at [facility] and did not take at home. D/c'd valsartan. Continue norvasc. 4. Orthostasis/Dizziness: Better off Valsartan. 5. Hypokalemia: On KCl and MgOx. K+=4.1 yesterday. Will hold supplements and follow 6. Acute post-op anemia: Stable. 7. Analgesia: Changed from percocet to [address]. Continue tramadol prn. 8. Advanced directives: full code 08/08/17 17:30
[2017-08-09] MEDS: HYDROcodone/ACETAMIN 5-325 MG* 1 TAB PO PRN ×5 (00:30→21:18)
[2017-08-09] MEDS: traMADol TAB* 50 MG PO PRN ×2 (07:46→16:56)
[2017-08-09] MEDS: amLODIPine TAB* 5 MG PO SCH (09:57)
[2017-08-09] MEDS: Enoxaparin(*) 30 MG/0.3 ML SYR SUBCUT SCH ×2 (09:57→21:20)
[2017-08-09 16:36] VITALS: BP 120/44
--- NOTE | 2017-08-09 17:40 | PN ---
Progress Note Date of Service: 08/09/17 Note: MONA LIRIANO was visited. Therapy notes read and reviewed. She feels like she is moving well. She will go home with pain meds and Lovenox. She just told me she has no insurance to pay for her meds. Will check on cost Current Medications: Active Medications Generic Name Dose Route Start Last Admin Trade Name Freq PRN Reason Stop Dose Admin Acetaminophen 650 mg 08/04/17 12:09 Tylenol Tab* PO Q6H PRN FEVER/PAIN Hydrocodone Bitart/Acetaminophen 1 tab 08/06/17 07:40 08/06/17 18:02 [place] 5-325 Tab* PO 1 tab Q4H PRN Administration PAIN Hydrocodone Bitart/Acetaminophen 2 tab 08/06/17 07:41 08/09/17 14:08 [place] 5-325 Tab* PO 2 tab Q4H PRN Administration PAIN Amlodipine Besylate 5 mg 08/05/17 09:00 08/09/17 09:57 Norvasc Tab* PO 5 mg DAILY DWIGHT Administration Bisacodyl 10 mg 08/04/17 12:09 Dulcolax Supp* OR DAILY PRN CONSTIPATION Docusate Sodium 100 mg 08/06/17 07:42 Colace Cap* PO BID PRN CONSTIPATION Enoxaparin Sodium 30 mg 08/04/17 21:00 08/09/17 09:57 Lovenox(*) SUBCUT 30 mg Q12H DWIGHT Administration Magnesium Hydroxide 30 ml 08/04/17 12:13 Milk Of Magnesia Liq* PO Q6H PRN CONSTIPATION Ondansetron HCl 4 mg 08/05/17 10:53 Zofran Odt Tab* SL Q6H PRN NAUSEA/VOMITING Senna 2 tab 08/06/17 07:42 Senokot Tab* PO BEDTIME PRN CONSTIPATION Tramadol HCl 50 mg 08/04/17 12:18 08/09/17 16:56 Ultram* PO 50 mg Q6H PRN Administration PAIN - MODERATE Vital Signs: Vital Signs Temp Pulse Resp BP Pulse Ox 98.6 F 72 18 120/44 97 08/09/17 16:28 08/09/17 16:28 08/09/17 16:57 08/09/17 16:28 08/09/17 16:28 Exam: LUNGS: clear to auscultation bilaterally CV: regular rate and rhythm ABD: + bowel sounds, soft, non-tender and non-distended. EXT: No edema. Right knee immobilizer on. Dressing is c/d/i. NEURO: Alert and oriented. Sensation intact. Can dorsiflex without problems Assessment/Plan: 1. Right distal femur fracture: f/u with Dr. Fulton. NWB RLE and knee immobilizer on AAT. PT/OT. 2. DVT ppx - On lovenox for total of 14 days. Will do Lovenox teaching. 3. Hypertension: Continue norvasc. 4. Orthostasis/Dizziness: Better off Valsartan. 5. Hypokalemia: Off KCl and MgOx. K+=4.1 Monday. 6. Acute post-op anemia: Stable. 7. Analgesia: Changed from percocet to [place]. Continue tramadol prn. 8. Advanced directives: full code 08/09/17 17:40
[2017-08-10] MEDS: HYDROcodone/ACETAMIN 5-325 MG* 1 TAB PO PRN ×3 (01:44→14:21)
[2017-08-10] MEDS: amLODIPine TAB* 5 MG PO SCH (08:22)
[2017-08-10] MEDS: Enoxaparin(*) 30 MG/0.3 ML SYR SUBCUT SCH (11:07)
--- NOTE | 2017-08-11 11:14 | DS ---
DISCHARGE SUMMARY: DATE OF ADMISSION: 08/04/17 DATE OF DISCHARGE: 08/10/17 DISCHARGE DIAGNOSES: 1. Right distal femur fracture. 2. Hypertension. HISTORY OF ILLNESS AND HOSPITAL COURSE: For complete history of the events leading up to her rehab stay, please see the history and physical dictated by me on 08/04/17. While on the rehab unit, the patient remained stable from a medical point of view. She was maintained on Lovenox for DVT prophylaxis. She received adequate analgesia with oral analgesics. She did have some nausea and wooziness while standing up after she was admitted. It was found out that the discharge instructions from Gerem[facility] Lara included an antihypertensive medication that the patient was not on. This medication was discontinued and subsequently the patient did well. This medication was valsartan. She remained on Norvasc. The patient otherwise was stable. She was seen by both Physical and Occupational Therapy and made good gains with both disciplines. With physical therapy at the time of admission, the patient required mod assist for bed mobility. She was min assist for transfers, contact guard to walk about 10 feet. With occupational therapy at the time of admission, the patient was supervision for upper body dressing, min assist for lower body dressing, contact guard for toileting, contact guard for toilet transfers. By the time of discharge, she was independent in transfers, independent with toilet transfers, independent in her activities of daily living. She was independent ambulating 50 feet. A manual wheelchair was ordered for the patient to go home with because of her nonweightbearing status. The patient was discharged home to her own home on 08/10/17. DISCHARGE DIET: Regular. DISCHARGE MEDICATIONS: 1. Norvasc 5 mg daily. 2. Lovenox 30 mg every 12 hours as needed for 6 days. 3. [place] 5/325 one to two tablets every 4 hours as needed. 4. Tramadol 50 mg every 6 hours as needed. SERVICES AT DISCHARGE: Through [facility] out of [place]. She will have home nursing, home physical therapy, and home occupational therapy. Follow up with [facility], Gely Najera, 08/18/17, at 1 p.m. [id number]/[facility] #: [id number] ELOY
== END 2017-08-10 14:00 | disposition home health service (06) | DRG 561 ==
LOC: PMRU 11:39
PROVIDERS: ADMIT Physical Medicine & Rehabilitation; ATTEND Physical Medicine & Rehabilitation
PROC: F07Z5ZZ Bed Mobility Treatment (ICD-10-PCS; principal; 2017-08-04)
PROC: F07Z9ZZ Gait Training/Functional Ambulation Treatment (ICD-10-PCS; 2017-08-04)
PROC: F07Z8ZZ Transfer Training Treatment (ICD-10-PCS; 2017-08-04)
PROC: F08Z0ZZ Bathing/Showering Techniques Treatment (ICD-10-PCS; 2017-08-04)
PROC: F08Z1ZZ Dressing Techniques Treatment (ICD-10-PCS; 2017-08-04)
PROC: F08Z3ZZ Feeding/Eating Treatment (ICD-10-PCS; 2017-08-04)
PROC: F07Z4ZZ Wheelchair Mobility Treatment (ICD-10-PCS; 2017-08-04)
DX: S72.411D Displaced unspecified condyle fracture of lower end of right femur, subsequent encounter for closed fracture with routine healing (principal); W18.30XD Fall on same level, unspecified, subsequent encounter; I10 Essential (primary) hypertension; E87.6 Hypokalemia; I95.2 Hypotension due to drugs; T46.5X5A Adverse effect of other antihypertensive drugs, initial encounter; Y92.239 Unspecified place in hospital as the place of occurrence of the external cause; X58.XXXA Exposure to other specified factors, initial encounter; Z79.899 Other long term (current) drug therapy
CPT/HCPCS: 36415; 80048; 80053; 83735; 85025; A9270-GY; J1650